=== PATIENT | male | born 1960 | race Caucasian/White ===

== ENCOUNTER 2016-05-20 22:42 | Observation (INO) | payer OTHER ==
[~2016-05-20 22:42] MED LIST: PRILOSEC20 MG PO
[2016-05-21 06:52] LABS: HEMOGLOBIN 13.4 gm/dl (14.0-17.5); RED BLOOD COUNT 4.06 M/UL (4.20-5.50); WHITE BLOOD COUNT 3.4 K/UL (4.5-11.0)
[2016-05-21] MEDS ORDERED: LANTUS INS100 UTS/M1 SQ (09:34)
[2016-05-21] MEDS ORDERED: ZYRTEC10 M3 PO (10:35)
[2016-05-21] MEDS ORDERED: FOLIC ACID 1 MG1 MG PO (10:36)
[2016-05-21] MEDS ORDERED: FLONASE ALLER15.8 ML (10:36)
[2016-05-21] MEDS ORDERED: LOPRESSOR100 MG PO (10:37)
[2016-05-21] MEDS ORDERED: LONITEN TAB 1010 MG PO (10:38)
[2016-05-21] MEDS ORDERED: ZOCOR 40 MG TAB40 MG PO (10:38)
[2016-05-21] MEDS ORDERED: FLOMAX0.4 MG PO (10:39)
[2016-05-21] MEDS ORDERED: B-100 COMPLEX100 MG PO (10:39)
[2016-05-21] MEDS ORDERED: VITAMIN D50000 UNIT PO (10:40)
[2016-05-21 12:49] LABS: BUN/CREATININE RATIO 12 (0-10)
[2016-05-21 23:20] LABS: HEMOGLOBIN 15.4 gm/dl (14.0-17.5); RED BLOOD COUNT 4.61 M/UL (4.20-5.50); WHITE BLOOD COUNT 7.4 K/UL (4.5-11.0)
[2016-05-22 06:30] LABS: HEMOGLOBIN 13.7 gm/dl (14.0-17.5); WHITE BLOOD COUNT 8.8 K/UL (4.5-11.0)
[2016-05-22 06:32] LABS: RED BLOOD COUNT 4.1 M/UL (4.20-5.50)
[2016-05-23 06:27] LABS: HEMOGLOBIN 13.9 gm/dl (14.0-17.5); RED BLOOD COUNT 4.2 M/UL (4.20-5.50); WHITE BLOOD COUNT 8.1 K/UL (4.5-11.0)
[2016-05-23 07:11] LABS: BUN/CREATININE RATIO 13 (0-10)
[2016-05-23] MEDS ORDERED: AZITHROMYCIN500 MG PO (10:51)
[2016-05-23] MEDS ORDERED: CEFUROXIME500 MG PO (10:51)
[2016-05-23] MEDS ORDERED: TESSALON PERLE100 MG PO (15:46)
[2016-05-23] MEDS ORDERED: MULTIVITAMINS1 EAC1 PO (15:49)
== END 2016-05-23 18:02 | disposition home or self-care (01) ==
LOC: ER1 22:42 → MED SURG 4 05-21 08:53 → ZEROF 05-21 08:53 → MED SURG 4 05-21 21:40
PROVIDERS: Student in an Organized Health Care Education/Training Program; ADMIT Family Medicine
DX: J18.9 Pneumonia, unspecified organism (principal); I12.9 Hypertensive chronic kidney disease with stage 1 through stage 4 chronic kidney disease, or unspecified chronic kidney disease; N18.3 Chronic kidney disease, stage 3 (moderate); E78.5 Hyperlipidemia, unspecified; E11.22 Type 2 diabetes mellitus with diabetic chronic kidney disease; F10.10 Alcohol abuse, uncomplicated; N40.0 Benign prostatic hyperplasia without lower urinary tract symptoms; K21.9 Gastro-esophageal reflux disease without esophagitis; Z79.899 Other long term (current) drug therapy; Z79.4 Long term (current) use of insulin; Z79.52 Long term (current) use of systemic steroids; Z90.89 Acquired absence of other organs
CPT/HCPCS: 36415; 36600; 71010; 71020; 80048; 80053; 82550; 82553; 82803; 82962; 83036; 83605; 83735; 83874; 83880; 84100; 84484; 85025; 85027; 85379; 87040; 93005; 94640; 94664; 96374; 96375; 96376; 99285; G0378; J0456; J0696; J1815; J2930; J7030; J7050

== ENCOUNTER 2020-06-29 13:30 | Inpatient (IN) | payer OTHER ==
[~2020-06-29] VITALS: Ht 175.3 cm; Wt 93.4 kg
[~2020-06-29 13:30] MED LIST changes: +AMARYL4 MG PO; +AUGMENTIN 875-1 EACH PO; +AZELASTIN-FLUTI23 GM; +AZITHROMYCIN500 MG PO; +B-100 COMPLEX100 MG PO; +BASAGLAR K100 UNIT/1 SQ; +BASAGLAR SQ; +CARVEDILOL12.5 MG PO; +CEFUROXIME500 MG PO; +CLARITIN10 MG PO; +FLOMAX0.4 MG PO; +FLONASE 0.05% N16 GM; +FLONASE ALLER15.8 ML; +FOLIC ACID 1 MG1 MG PO; +GLUCOPHAGE500 MG PO; +HYGROTON TAB 2525 MG PO; +LANTUS INS100 UTS/M1 SQ; +LISINOPRIL5 MG PO; +LONITEN TAB 1010 MG PO; +LOPRESSOR100 MG PO; +MAG-OX 400 TAB400 MG PO; +TESSALON PERLE100 MG PO; +THERAGRAN M TAB1 EA PO; +VIAGRA25 MG PO; +VITAMIN C 250250 MG PO; +VITAMIN D50000 UNIT PO; +ZOCOR10 MG PO; +ZOCOR40 MG PO; +ZYRTEC10 M3 PO
[2020-06-29 16:51] LABS: HEMOGLOBIN 14.3 gm/dl (14.0-17.5); RED BLOOD COUNT 4.15 M/UL (4.20-5.50); WHITE BLOOD COUNT 3.4 K/UL (4.5-11.0)
[2020-06-29] MEDS ORDERED: XYZAL5 MG PO (16:59)
[2020-06-29] MEDS ORDERED: ASPIRIN EC81 MG PO (17:31)
[2020-06-29] MEDS ORDERED: OMEPRAZOLE40 MG PO (17:31)
[2020-06-29] MEDS ORDERED: FOLIC ACID 1 MG1 MG PO (17:31)
[2020-06-29] MEDS ORDERED: VITAMIN B-1100 MG PO (17:32)
[2020-06-29] MEDS ORDERED: MULTIVITAMINS1 EAC2 PO (17:32)
[2020-06-29] MEDS ORDERED: FLOMAX0.4 MG PO (17:32)
[2020-06-29] MEDS ORDERED: PREVAGEN PO (17:35)
[2020-06-29] MEDS ORDERED: SUPER BETA PROSTATE PO (17:40)
[2020-06-29] MEDS ORDERED: COREG 12.5MG12.5 MG PO (17:44)
[2020-06-30 04:42] LABS: HEMOGLOBIN 14.4 gm/dl (14.0-17.5); RED BLOOD COUNT 4.22 M/UL (4.20-5.50)
[2020-06-30 04:43] LABS: WHITE BLOOD COUNT 4.3 K/UL (4.5-11.0)
--- NOTE | 2020-06-30 05:37 | NUR ---
spoke with nory in pharmacy, hold am vanc dose trough 21.1
--- NOTE | 2020-06-30 08:32 | NUR ---
IN REPORT NIGHT NURSE SAID PATIENT NORMALLY DRINKS 12 BEERS/DAY AND DRINKS VODKA. DR LEONARD WAS NOTIFIED AND SAID HE WOULD JUST SEE THE PATIENT WHEN HE GETS HERE.
--- NOTE | 2020-06-30 15:50 | NUR ---
PATIENT HAS BLOOD PRESSURE OF 191/89. DR HENNING HAS BEEN CALLED TWICE, A MESSAGE HAS BEEN LEFT WITH THE INFORMATION, WITH NO CALL BACK AT PRESENT.
--- NOTE | 2020-06-30 16:17 | NUR ---
DOCTOR JUVENCIO CALLED AGAIN. GAVE ORDERS TO GIVE ATIVAN AND LIBRIUM AND RECHECK BLOOD PRESSURE IN AN HOUR.
[2020-07-01 04:10] LABS: RED BLOOD COUNT 3.91 M/UL (4.20-5.50); WHITE BLOOD COUNT 4.4 K/UL (4.5-11.0)
[2020-07-02 03:45] LABS: HEMOGLOBIN 14.8 gm/dl (14.0-17.5); WHITE BLOOD COUNT 5.3 K/UL (4.5-11.0)
[2020-07-02 03:57] LABS: RED BLOOD COUNT 4.39 M/UL (4.20-5.50)
[2020-07-03 03:35] LABS: HEMOGLOBIN 13.1 gm/dl (14.0-17.5); WHITE BLOOD COUNT 4.6 K/UL (4.5-11.0)
[2020-07-03 04:08] LABS: RED BLOOD COUNT 3.91 M/UL (4.20-5.50)
[2020-07-04] MEDS ORDERED: LANTUS SOL100 UNIT/1 SQ (11:57)
[2020-07-04] MEDS ORDERED: NOVOLOG FL100 UNIT/1 SC (11:57)
[2020-07-04] MEDS ORDERED: FLORASTOR250 MG PO (11:57)
[2020-07-04] MEDS ORDERED: AUGMENTIN 875-1 EACH PO (11:57)
== END 2020-07-04 15:57 | disposition home or self-care (01) | DRG 863 ==
LOC: ER1 13:30 → CDU 16:49 → M/S 16:49
PROVIDERS: Emergency Medicine; Physician Assistant; Physician Assistant Medical; Podiatrist Foot & Ankle Surgery; ADMIT Internal Medicine
DX: T81.40XA Infection following a procedure, unspecified, initial encounter (principal); N17.9 Acute kidney failure, unspecified; L03.115 Cellulitis of right lower limb; E66.9 Obesity, unspecified; I10 Essential (primary) hypertension; E78.5 Hyperlipidemia, unspecified; F10.10 Alcohol abuse, uncomplicated; R53.81 Other malaise; Z20.822 Contact with and (suspected) exposure to COVID-19; Y83.8 Other surgical procedures as the cause of abnormal reaction of the patient, or of later complication, without mention of misadventure at the time of the procedure; E83.42 Hypomagnesemia; K21.9 Gastro-esophageal reflux disease without esophagitis; E11.9 Type 2 diabetes mellitus without complications; Z68.30 Body mass index [BMI] 30.0-30.9, adult
CPT/HCPCS: 36415; 73700; 80048; 80053; 80202; 81001; 82570; 82962; 83735; 84100; 84132; 84156; 84550; 85025; 85027; 85652; 86140; 87040; 87070; 87086; 87205; 96374; 99284; G0480; J0360; J1650; J2020; J2543; J3370; J3475; J7030; J7070; U0002

== ENCOUNTER 2020-11-23 19:31 | Inpatient (IN) | payer OTHER ==
[~2020-11-23] VITALS: Ht 175.3 cm; Wt 88.9 kg
[~2020-11-23 19:31] MED LIST changes: +ASPIRIN EC81 MG PO; +COREG 12.5MG12.5 MG PO; +DRISDOL1250 MCG PO; +FLORASTOR250 MG PO; +LANTUS SOL100 UNIT/1 SQ; -LISINOPRIL5 MG PO; +MULTIVITAMINS1 EAC2 PO; +NOVOLOG FL100 UNIT/1 SC; +OMEPRAZOLE40 MG PO; +OMNICEF 300 MG300 MG PO; +PREVAGEN PO; +SUPER BETA PROSTATE PO; +VITAMIN B-1100 MG PO; +XYZAL5 MG PO; -ZOCOR10 MG PO
[2020-11-23 20:33] LABS: RED BLOOD COUNT 4.57 M/UL (4.20-5.50); WHITE BLOOD COUNT 6.5 K/UL (4.5-11.0)
[2020-11-23 20:54] LABS: BUN/CREATININE RATIO 9 (0-10)
[2020-11-24] MEDS ORDERED: LISINOPRIL10 MG PO (03:06)
[2020-11-24 03:53] LABS: HEMOGLOBIN 12.9 gm/dl (14.0-17.5); RED BLOOD COUNT 3.72 M/UL (4.20-5.50); WHITE BLOOD COUNT 4.8 K/UL (4.5-11.0)
[2020-11-24] MEDS ORDERED: ZOCOR40 MG PO (10:38)
[2020-11-24] MEDS ORDERED: AMARYL2 MG PO (11:02)
[2020-11-24] MEDS ORDERED: GLUCOPHAGE 500500 MG PO (11:02)
[2020-11-24] MEDS ORDERED: TRULICITY1.5 MG/0.5 SQ (11:06)
[2020-11-24] MEDS ORDERED: NERVIVE PO (12:09)
[2020-11-24] MEDS ORDERED: FLONASE 0.05% N16 GM (18:52)
[2020-11-25 06:08] LABS: BUN/CREATININE RATIO 14 (0-10)
== END 2020-11-25 16:00 | disposition home or self-care (01) | DRG 637 ==
LOC: ER1 19:31 → CDU 11-24 00:12
PROVIDERS: Emergency Medicine; Internal Medicine; ADMIT Internal Medicine
DX: E11.649 Type 2 diabetes mellitus with hypoglycemia without coma (principal); G93.41 Metabolic encephalopathy; E87.1 Hypo-osmolality and hyponatremia; Z68.41 Body mass index [BMI] 40.0-44.9, adult; N17.9 Acute kidney failure, unspecified; Z20.822 Contact with and (suspected) exposure to COVID-19; I12.9 Hypertensive chronic kidney disease with stage 1 through stage 4 chronic kidney disease, or unspecified chronic kidney disease; I95.9 Hypotension, unspecified; E83.42 Hypomagnesemia; E11.22 Type 2 diabetes mellitus with diabetic chronic kidney disease; F10.20 Alcohol dependence, uncomplicated; G47.33 Obstructive sleep apnea (adult) (pediatric); N18.30 Chronic kidney disease, stage 3 unspecified; E78.5 Hyperlipidemia, unspecified; E66.9 Obesity, unspecified; Z79.01 Long term (current) use of anticoagulants; Z79.82 Long term (current) use of aspirin
CPT/HCPCS: 51702; 71045; 80048; 80053; 81001; 82550; 82553; 82962; 83605; 83690; 83735; 83874; 84439; 84443; 84484; 85025; 87040; 93005; 96365; 96367; 96375; 99285; J1650; J2405; J2543; J3475; U0002

== ENCOUNTER → 2021-01-15 | Outpatient (CLI) | payer OTHER ==
[~2021-01-15] MED LIST changes: +AMARYL2 MG PO; +GLUCOPHAGE 500500 MG PO; +LISINOPRIL10 MG PO; +NERVIVE PO; +TRULICITY1.5 MG/0.5 SQ
[2021-01-15 17:07] LABS: HEMOGLOBIN 13.8 gm/dl (14.0-17.5); RED BLOOD COUNT 3.98 M/UL (4.20-5.50); WHITE BLOOD COUNT 4.1 K/UL (4.5-11.0)
[2021-01-15 17:32] LABS: BUN/CREATININE RATIO 14 (0-10)
== END ==
LOC: LAB 16:22
PROVIDERS: Family Medicine
DX: E87.1 Hypo-osmolality and hyponatremia (principal); R41.82 Altered mental status, unspecified
CPT/HCPCS: 36415; 80053; 81001; 85025